=== PATIENT | female | born 1945 | race Asian ===

== ENCOUNTER → 2025-08-12 | Outpatient (CLI) | payer OTHER ==
[~2025-08-12] MED LIST: ALEN70TA80 PO; ERGO400C PO; IBUP-2077 PO; KRIL1CAP22 PO; MULT-1258 PO; ROPI0.2535 PO; SIMV-43 PO
[2025-08-12] MEDS: REGADENOSON 0.4 MG/5 ML PF SYG IVP SCH (12:44)
--- NOTE | 2025-08-12 20:31 | HMCSR ---
APPROVED REPORT Height: 5 ft 1in Weight: 111 lbs TEST INDICATIONS Ventricular Premature Depolarization The imaging protocol used to acquire images was Rest Tc-99m/stress Tc-99m 1 day Consent: The procedure was explained and understood by the patient. Informerd consent was witnessed Rebeca Bravo RN First, low dose rest was performed then high dose stress. RESTING DATA: The resting ekg shows: NSR, PVCs Rest SPECT myocardial perfusion imaging was performed in supine position minutes following the intra venous injection of 11 mCi of Tc-99 Sestamibi. Time of rest injection: Date: 08/12/2025 Time of rest imaging: Date: 08/12/2025 PHARMACOLOGIC STRESS: Pharmacologic stress test was performed by injecting regadenoson 0.4 mg IV push followed by the intra venous injection of 30 mCi of Tc-99 Sestamibi. Time of stress injection: Date: 08/12/2025 Time of stress imaging: Date: 08/12/2025 Heart Rate at time of stress injection: 60 bpm. The images were gated to evaluate regional wall motion and calculate left ventricular ejection fracti on. STRESS DETAILS Reason for Termination: Infusion complete Stress Symptoms: No chest pain or symptoms Max HR Achieved: 89 bpm % of APMHR Achieved: 74 Max Blood Pressure: 151/83 mmHg Stress ECG: NSR, PVC Study quality was good. Lung uptake was Normal. Artifact: No artifact IMPRESSION Normal pharmacologic nuclear stress test. Conclusion Normal perfuison. TID normal. LVEF >70%.
== END | disposition home or self-care (01) ==
LOC: RAH 10:31
PROVIDERS: ATTEND Student in an Organized Health Care Education/Training Program
DX: I49.3 Ventricular premature depolarization (principal); R42 Dizziness and giddiness; I10 Essential (primary) hypertension; E11.9 Type 2 diabetes mellitus without complications; E78.2 Mixed hyperlipidemia; R00.2 Palpitations; I20.9 Angina pectoris, unspecified; Z79.899 Other long term (current) drug therapy
CPT/HCPCS: 78452; 93017; J2785; A9500 ×2